=== PATIENT | female | born 2000 | race African-American/Black ===

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

== ENCOUNTER 2022-06-09 13:44 | Emergency (ER) | payer MEDICAID, OTHER ==
[~2022-06-09] VITALS: Ht 149.9 cm; Wt 55.7 kg
[2022-06-09 14:47] LABS: Albumin 3.7 g/dL (3.4-5.0); BUN/Creatinine Ratio 9.7; Basophils # (auto) 0 10 ^3/uL (0-0.2); Basophils % (auto) 0.7 % (0.0-2.0); Calcium 8.5 mg/dL (8.5-10.1); Eosinophils # (auto) 0.3 10 ^3/uL (0-0.8); Eosinophils % (auto) 5.6 % (0.0-7.0); Hematocrit 38.6 % (36.0-46.0); Hemoglobin 12.6 g/dL (12.2-16.2); Lymphocytes # (auto) 1.6 10 ^3/uL (0.4-5.4); Lymphocytes % (auto) 26.7 % (10.0-50.0); Mean Corpuscular Hemoglobin 28.2 pg (28.0-32.0); Mean Corpuscular Hgb Conc. 32.7 g/dL (32.0-36.0); Mean Corpuscular Volume 86.3 fL (80.0-100.0); Monocytes # (auto) 0.4 10 ^3/uL (0-1.3); Monocytes % (auto) 5.9 % (0.0-12.0); Neutrophils # (auto) 3.7 10 ^3/uL (1.6-8.6); Neutrophils % (auto) 61.1 % (37.0-80.0); Nucleated Red Blood Cells % 0.1 %; Potassium 3.6 mmol/L (3.5-5.1); Red Blood Cells 4.48 10^6/uL (4.0-5.20); Red Cell Distribution Width 14.3 % (11.8-14.3)
[2022-06-09 14:50] LABS: Total Protein 7.5 g/dL (6.4-8.2)
[2022-06-09 15:09] LABS: Urine Bacteria NONE SEEN /hpf (None Seen); Urine Blood Negative /uL (Negative); Urine Mucus FEW (None Seen); Urine Specific Gravity 1.028 (1.001-1.035); Urine Sperm PRESENT /hpf (None Seen); Urine WBC 16 /hpf (0 - 5)
[2022-06-09 20:20] VITALS: BP 114/64
[2022-06-09] MEDS ORDERED: NITR-87 PO (20:22)
== END 2022-06-09 20:30 | disposition home or self-care (01) ==
LOC: ER 13:44
DX: O20.0 Threatened abortion (principal); O23.41 Unspecified infection of urinary tract in pregnancy, first trimester; N39.0 Urinary tract infection, site not specified; Z91.018 Allergy to other foods; Z3A.00 Weeks of gestation of pregnancy not specified
CPT/HCPCS: 36415; 76801; 76817; 80053; 81001; 84702; 85025

== ENCOUNTER 2023-06-19 13:45 | Emergency (ER) | payer MEDICAID ==
[~2023-06-19] VITALS: Ht 144.8 cm; Wt 59.4 kg
[~2023-06-19 13:45] MED LIST: NITR-87 PO
[2023-06-19 14:36] VITALS: BP 116/64; PULSE 92; RESP 16; TEMP 98.6; O2SAT 96
[2023-06-19 15:07] LABS: Urine Bacteria FEW /hpf (None Seen); Urine Blood Negative /uL (Negative); Urine Clarity HAZY (Clear); Urine Color Yellow (Yellow); Urine Mucus MODERATE (None Seen); Urine Protein, UAD 1+ (Negative); Urine Specific Gravity 1.028 (1.001-1.035); Urine WBC 40 /hpf (0 - 5); Urine pH 6.5 (5.0-8.0)
[2023-06-19 15:35] LABS: Vaginal Trichomonas Not Present
[2023-06-19 15:36] LABS: Vaginal Bacteria Moderate; Vaginal Clue Cells Few; Vaginal Epithelial Cells Many
[2023-06-19] MEDS ORDERED: NITR-87 PO (15:45)
[2023-06-19] MEDS ORDERED: MET500T PO (15:45)
== END 2023-06-19 15:59 | disposition home or self-care (01) ==
LOC: ER 13:45
DX: O23.33 Infections of other parts of urinary tract in pregnancy, third trimester (principal); N39.0 Urinary tract infection, site not specified; Z3A.28 28 weeks gestation of pregnancy
CPT/HCPCS: 81001; 81025; 87210

== ENCOUNTER 2023-08-15 18:21 | Observation (INO) | payer MEDICAID ==
[~2023-08-15] VITALS: Ht 147.3 cm; Wt 63.5 kg
[~2023-08-15 18:21] MED LIST changes: +MET500T PO
[2023-08-15] MEDS ORDERED: FERR-7 PO (18:58)
[2023-08-15] MEDS ORDERED: PREN-96 PO (18:58)
[2023-08-15 19:25] LABS: Fern Testing Negative
[2023-08-15 19:53] LABS: Amphetamine Screen, Urine Neg (NEGATIVE); Barbiturate Scree,Urine Neg (NEGATIVE); Benzodiazephine Screen, Urine Neg (NEGATIVE); Cannabinoid Screen, Urine Neg (NEGATIVE); Cocaine Screen, Urine Neg (NEGATIVE); Opiate Scree,Urine Neg (NEGATIVE); Phencyclidine Screen, Urine Neg (NEGATIVE)
== END 2023-08-15 20:05 | disposition home or self-care (01) ==
LOC: LDRP 18:21
PROVIDERS: ADMIT Obstetrics & Gynecology; ATTEND Obstetrics & Gynecology
DX: O42.913 Preterm premature rupture of membranes, unspecified as to length of time between rupture and onset of labor, third trimester (principal); Z3A.36 36 weeks gestation of pregnancy
CPT/HCPCS: 59025; 80307; 81002; 84112; 94760; G0378; Q0114

== ENCOUNTER 2023-11-15 07:15 | Emergency (ER) | payer MEDICAID ==
[~2023-11-15] VITALS: Ht 144.8 cm; Wt 59.0 kg
[~2023-11-15 07:15] MED LIST changes: +FERR-7 PO; +PREN-96 PO
[2023-11-15 07:54] VITALS: BP 123/84; PULSE 90; RESP 16; TEMP 98.1; O2SAT 99
[2023-11-15] MEDS ORDERED: IBUP1TAB5 PO (08:02)
[2023-11-15] MEDS ORDERED: AMOX500T3 PO (08:03)
== END 2023-11-15 08:06 | disposition home or self-care (01) ==
LOC: ER 07:15
DX: G56.03 Carpal tunnel syndrome, bilateral upper limbs (principal); K08.89 Other specified disorders of teeth and supporting structures
CPT/HCPCS: 29125